=== PATIENT | female | born 1995 | race Caucasian/White ===

== ENCOUNTER 2017-05-27 21:51 | Emergency (ER) | payer SELFPAY ==
[~2017-05-27] VITALS: Ht 167.6 cm; Wt 80.0 kg
[~2017-05-27 21:51] MED LIST: NO HOME MEDS
[2017-05-27 21:53] VITALS: BP 158/94
[2017-05-27] MEDS ORDERED: AUGMENTIN875 MG PO (23:02)
[2017-05-27] MEDS ORDERED: MOTRIN800 MG PO (23:02)
[2017-05-27] MEDS ORDERED: TYLENOL WITH C1 EACH PO (23:02)
== END 2017-05-27 23:25 | disposition home or self-care (01) ==
LOC: EME 21:51
DX: K02.9 Dental caries, unspecified (principal); K03.81 Cracked tooth
CPT/HCPCS: 99281; 99284

== ENCOUNTER 2017-10-19 22:58 | Emergency (ER) | payer OTHER ==
[~2017-10-19] VITALS: Ht 170.2 cm; Wt 73.2 kg
[~2017-10-19 22:58] MED LIST changes: +AUGMENTIN875 MG PO; +MOTRIN800 MG PO; +TYLENOL WITH C1 EACH PO
[2017-10-19] MEDS ORDERED: TYLENOL WITH C1 EACH PO (23:40)
[2017-10-19] MEDS ORDERED: AMOXICILLIN875 MG PO (23:40)
[2017-10-19] MEDS ORDERED: MOTRIN600 MG PO (23:40)
[2017-10-20 00:06] VITALS: BP 126/87
== END 2017-10-20 00:07 | disposition home or self-care (01) ==
LOC: EME 22:58
PROC: 3E0T3BZ Introduction of Anesthetic Agent into Peripheral Nerves and Plexi, Percutaneous Approach (ICD-10-PCS; principal; 2017-10-19)
DX: K08.89 Other specified disorders of teeth and supporting structures (principal)
CPT/HCPCS: 99281; 99283